=== PATIENT | female | born 1970 | race Caucasian/White ===

== ENCOUNTER 2016-05-15 14:22 | Emergency (ER) | payer OTHER ==
[2016-05-15 14:54] VITALS: BP 127/75
--- NOTE | 2016-05-15 15:04 | UC ---
Respiratory Complaint HPI - HPI Summary HPI Summary: patient has had sinus issues, cough and SOB for 3 days, she is a smoker. no current fever. - History of Current Complaint Chief Complaint: UCGeneralIllness Stated Complaint: UPPER RESPIRATORY Time Seen by Provider: 05/15/16 14:52 Hx Obtained From: Patient Hx Last Menstrual Period: had ablation ?: No Onset/Duration: Sudden Onset, Lasting Days Timing: Constant Severity Initially: Mild Severity Currently: Moderate Pain Intensity: 6 Pain Scale Used: 0-10 Numeric Character: Cough: Productive Aggravating Factors: Deep Breaths, Recumbent Position Associated Signs And Symptoms: Positive: Dyspnea, Chills, URI, Nasal Congestion , Sinus Discomfort - Risk Factors Pulmonary Embolism Risk Factors: Negative Cardiac Risk Factors: Negative Pseudomonas Risk Factors: Negative Tuberculosis Risk Factors: Negative - Allergies/Home Medications Allergies/Adverse Reactions: Allergies Allergy/AdvReac Type Severity Reaction Status Date / Time Codeine Allergy Intermediate "I Pass Verified 05/15/16 14:54 Out" Erythromycin AdvReac Severe Projectile Verified 05/15/16 14:54 Vomiting PMH/Surg Hx/FS Hx/Imm Hx Previously Healthy: Yes Endocrine History Of: Reports: Thyroid Disease - Hypothyroidism - Surgical History Surgical History: Yes Surgery Procedure, Year, and Place: Thyroidectomy, 1998, [facility]. Tubal Ligation, 2000, [facility]. Uterine Ablation, 2007, [facility]. gallbladder - Family History Known Family History: Positive: None - negative for HTn or CAD - Social History Alcohol Use: Occasionally Substance Use Type: None Smoking Status (MU): Heavy Every Day Tobacco Smoker Type: Cigarettes Amount Used/How Often: 1/2 ppd - Immunization History Most Recent Influenza Vaccination: none Review of Systems Constitutional: Chills Skin: Negative Eyes: Negative ENT: Sore Throat, Ear Ache, Nasal Discharge Respiratory: Shortness Of Breath, Cough Cardiovascular: Negative Gastrointestinal: Negative Genitourinary: Negative Motor: Negative Neurovascular: Negative Musculoskeletal: Negative Neurological: Negative Psychological: Negative All Other Systems Reviewed And Are Negative: Yes Physical Exam Triage Information Reviewed: Yes Appearance: Well-Nourished, Ill-Appearing, Pain Distress Vital Signs: Initial Vital Signs Temp 97.2 F 05/15/16 14:48 Pulse 63 05/15/16 14:48 Resp 17 05/15/16 14:48 BP 127/75 05/15/16 14:48 Pulse Ox 100 05/15/16 14:48 Vital Signs Reviewed: Yes Eye Exam: Normal Eyes: Positive: Conjunctiva Clear ENT: Positive: Pharyngeal erythema, Nasal congestion, Nasal drainage, TM bulging , TM red, Tonsillar swelling, Tonsillar exudate, Muffled/hoarse voice Dental Exam: Normal Neck exam: Normal Neck: Positive: Supple, Nontender, No Lymphadenopathy Respiratory Exam: Normal Respiratory: Positive: Chest non-tender, No respiratory distress, No accessory muscle use, Decreased breath sounds Cardiovascular Exam: Normal Cardiovascular: Positive: RRR, No Murmur, Pulses Normal Abdominal Exam: Normal Abdomen Description: Positive: Nontender, No Organomegaly, Soft Bowel Sounds: Positive: Present Musculoskeletal Exam: Normal Musculoskeletal: Positive: Strength Intact, ROM Intact, No Edema Neurological Exam: Normal Neurological: Positive: Alert, Muscle Tone Normal Psychological Exam: Normal Skin Exam: Normal UC Diagnostic Evaluation - Laboratory O2 Sat by Pulse Oximetry: 100 Respiratory Course/Dx - Course Course Of Treatment: hx obtained, exam performed, chest xray neg, treated for sinusitis, patient is a tobacco user, educated about tobacco cessation. medications prescribed. - Differential Dx/Diagnosis Differential Diagnosis/HQI/PQRI: Asthma, Bronchitis, Influenza, Laryngitis, Sinusitis Provider Diagnoses: sinusitis. headache. cough Discharge - Discharge Plan Condition: Stable Disposition: HOME Patient Education Materials: Sinusitis (ED) Additional Instructions: take the medication as prescribed, increase your fluid intake and get plenty of rest. Smoking exacerbates sinus and respiratory issues, I recommend follow up with your primary provider for tobacco cessation.
--- NOTE | 2016-05-15 15:38 | RAD ---
INDICATION: Cough and decreased breath sounds COMPARISON: Chest x-ray dated June 02, 2015 TECHNIQUE: PA and lateral views of the chest were obtained. FINDINGS: Stable postoperative findings include surgical clips overlying the neck. The heart and mediastinum are normal in size and contour. The lungs are grossly clear. There is no evidence of large pleural effusion. Visualized bones are normal for the patient's age. There is no radiographic evidence of free air beneath the diaphragm IMPRESSION: No radiographic evidence of acute cardiopulmonary disease.
== END 2016-05-15 15:55 | disposition home or self-care (01) ==
LOC: UCCORT 14:22
DX: J32.9 Chronic sinusitis, unspecified (principal); F17.210 Nicotine dependence, cigarettes, uncomplicated; Z88.1 Allergy status to other antibiotic agents; Z88.5 Allergy status to narcotic agent
CPT/HCPCS: 71020; 99212; G0463

== ENCOUNTER 2016-09-29 09:40 | Emergency (ER) | payer OTHER ==
[2016-09-29 09:57] VITALS: BP 109/59
--- NOTE | 2016-09-29 11:18 | UC ---
Respiratory Complaint HPI - HPI Summary HPI Summary: 46 female presents with complaints of productive cough, head congestion, headache and subjective fever that began 1 week ago. Patient states she tried taking ibuprofen, dayquill/nyquil with little relief. Last dose ibuprofen was at 8am today. Patient has been coughing up green mucus like sputum denies blood. States sometimes the cough is so bad she causes her self to vomit. It has kept her up at night as it worsens when laying down. States she had a fever of 102F 3 days ago. Denies abdominal pain, SOB, chest pain and difficulty breathing. States she just quit smoking 1 month ago. Also complains of begin so congested, it throws her equilibrium off and sometimes she feels dizzy, not currently. Denies PMHx. - History of Current Complaint Chief Complaint: UCRespiratory Stated Complaint: COUGH,DIZZINESS Time Seen by Provider: 09/29/16 10:13 Hx Obtained From: Patient Hx Last Menstrual Period: s/p Uterine Ablation ?: No Onset/Duration: Sudden Onset, Lasting Weeks - 1 Severity Initially: Mild Severity Currently: Moderate Character: Cough: Productive - [id number] sputum Aggravating Factors: Deep Breaths, Recumbent Position Alleviating Factors: Upright Position, Nothing Associated Signs And Symptoms: Positive: Fever, Chills, URI, Nasal Congestion. Negative: Dyspnea, Pleuritic Chest Pain, Hemoptysis, Dizziness, Calf Pain, Calf Swelling, Edema - Allergies/Home Medications Allergies/Adverse Reactions: Allergies Allergy/AdvReac Type Severity Reaction Status Date / Time Codeine Allergy Intermediate "I Pass Verified 09/29/16 09:52 Out" Erythromycin AdvReac Severe Projectile Verified 09/29/16 09:52 Vomiting Home Medications: Home Medications Ibuprofen TAB* [Advil TAB*] 400 mg PO Q6H PRN 09/29/16 [History Confirmed ] PMH/Surg Hx/FS Hx/Imm Hx Endocrine History Of: Reports: Thyroid Disease - Hypothyroidism Respiratory History Of: Denies: COPD, Asthma - Surgical History Surgical History: Yes Surgery Procedure, Year, and Place: Thyroidectomy, 1998, [facility]. Tubal Ligation, 2000, [facility]. Uterine Ablation, 2007, [facility]. gallbladder - Family History Known Family History: Positive: None - Social History Alcohol Use: Occasionally Substance Use Type: None Smoking Status (MU): Former Smoker Type: Cigarettes Amount Used/How Often: 1 1/2 PPD Length of Time of Smoking/Using Tobacco: 31 Years Have You Smoked in the Last Year: Yes When Did the Patient Quit Smoking/Using Tobacco: 08/31/16 - Immunization History Most Recent Influenza Vaccination: Not the Season Review of Systems Constitutional: Fever, Chills Skin: Negative Eyes: Negative ENT: Sore Throat, Ear Ache, Nasal Discharge Respiratory: Cough Cardiovascular: Negative Gastrointestinal: Vomiting Motor: Negative Musculoskeletal: Negative Neurological: Headache All Other Systems Reviewed And Are Negative: Yes Physical Exam Triage Information Reviewed: Yes Appearance: No Pain Distress, Well-Nourished, Ill-Appearing Vital Signs: Initial Vital Signs Temp 98.4 F 09/29/16 09:50 Pulse 78 09/29/16 09:50 Resp 16 09/29/16 09:50 BP 109/59 09/29/16 09:50 Pulse Ox 98 09/29/16 09:50 Vital Signs Reviewed: Yes Eyes: Positive: Conjunctiva Clear ENT: Positive: Normal ENT inspection, Hearing grossly normal, Pharyngeal erythema - post nasal drip noted, Nasal congestion - erythema b/l, TMs normal. Negative: Nasal drainage, Tonsillar swelling, Tonsillar exudate, Trismus, Muffled/hoarse voice Dental: Positive: Percussion Tenderness @ - "pressure" maxillary b/l. Negative : Cervical Lymphadenopathy Neck: Positive: Supple, Nontender, No Lymphadenopathy Respiratory: Positive: Chest non-tender, Lungs clear, Normal breath sounds, No respiratory distress, No accessory muscle use. Negative: Respiratory distress, Decreased breath sounds, Crackles, Rhonchi, Stridor, Wheezing Cardiovascular: Positive: RRR, No Murmur, Pulses Normal, Brisk Capillary Refill Abdomen Description: Positive: Nontender, Soft Bowel Sounds: Positive: Present Musculoskeletal: Positive: Strength Intact, ROM Intact, No Edema Neurological Exam: Normal Neurological: Positive: Alert Psychological: Positive: Normal Response To Family Skin Exam: Normal UC Diagnostic Evaluation - Laboratory O2 Sat by Pulse Oximetry: 98 Respiratory Course/Dx - Course Course Of Treatment: will be treated for sinusitis/URI due to length of symptoms and symptomatic treatment tried. flonase, z-pack due to patient stating it works best for her with past sinusitis, ibuprofen and fluids/rest. recommended cough suppressant at night time and salt water garles, saline rinses. Follow up PCP. Aware of worsening signs and symptoms. - Differential Dx/Diagnosis Differential Diagnosis/HQI/PQRI: Bronchitis, Influenza, Lower Resp Infection, Sinusitis, Other Provider Diagnoses: Acute Sinusitis Discharge - Discharge Plan Condition: Stable Disposition: HOME Prescriptions: Azithromycin TAB* [Zithromax TAB (Z-MICHELET) 250 mg #6 tabs] 2 tab PO .TODAY, THEN 1 DAILY #1 michelet Fluticasone NASAL SPRAY 50MCG* [Flonase NASAL SPRAY 50MCG*] 2 spray BOTH NARES DAILY #1 btl Patient Education Materials: Sinusitis (ED) Referrals: Mary Jo Keita MD [Primary Care Provider] - Additional Instructions: Take prescribed medication as directed. Use flonase nasal spray before bedtime to help with nasal/sinus congestion, while symptoms persist. Drink plenty of fluids and get plenty of rest. Continue ibuprofen for discomfort and fevers. Recommend gargling with salt water and saline nasal rinses, if able to tolerate. Sleep with extra pillow at night and take hot showers. If symptoms worsen or do not improve in the next 2 weeks, seek medical attention. Follow up with primary care provider.
== END 2016-09-29 11:26 | disposition home or self-care (01) ==
LOC: UCCORT 09:40
DX: J01.90 Acute sinusitis, unspecified (principal); Z87.891 Personal history of nicotine dependence
CPT/HCPCS: 99212; G0463

== ENCOUNTER 2017-05-11 07:40 | Emergency (ER) | payer OTHER ==
[2017-05-11 07:55] VITALS: BP 119/66
--- NOTE | 2017-05-11 08:06 | UC ---
Respiratory Complaint HPI - HPI Summary HPI Summary: cough x 3 days chest congestion and tightness, no fever, + chills no sob - History of Current Complaint Chief Complaint: UCRespiratory Stated Complaint: RESPRITORY Time Seen by Provider: 05/11/17 07:46 Hx Obtained From: Patient Hx Last Menstrual Period: n/a Onset/Duration: Gradual Onset, Lasting Days - 3, Still Present Timing: Constant Severity Initially: Moderate Severity Currently: Moderate Character: Cough: Nonproductive Aggravating Factors: Exertion, Deep Breaths Alleviating Factors: Nothing Associated Signs And Symptoms: Positive: Wheezing, URI, Nasal Congestion - Allergies/Home Medications Allergies/Adverse Reactions: Allergies Allergy/AdvReac Type Severity Reaction Status Date / Time Codeine Allergy Intermediate "I Pass Verified 09/29/16 09:52 Out" Erythromycin AdvReac Severe Projectile Verified 09/29/16 09:52 Vomiting Home Medications: Home Medications Levothyroxine TAB* [Synthroid TAB*] 112 mcg PO DAILY 05/11/17 [History Confirmed 05/11/17] PMH/Surg Hx/FS Hx/Imm Hx Endocrine History: Thyroid Disease, Hypothyroidism - Surgical History Surgical History: Yes Surgery Procedure, Year, and Place: Thyroidectomy, 1998, [facility]. Tubal Ligation, 2000, [facility]. Uterine Ablation, 2007, [facility]. gallbladder - Family History Known Family History: Positive: None Negative: Diabetes - Social History Alcohol Use: Occasionally Substance Use Type: None Smoking Status (MU): Former Smoker Type: Cigarettes Amount Used/How Often: 1 1/2 PPD Length of Time of Smoking/Using Tobacco: 31 Years Have You Smoked in the Last Year: Yes When Did the Patient Quit Smoking/Using Tobacco: 08/31/16 - Immunization History Most Recent Influenza Vaccination: Not the 2015/2016 Season Review of Systems Constitutional: Chills Skin: Negative Eyes: Negative ENT: Nasal Discharge Respiratory: Cough Cardiovascular: Negative Gastrointestinal: Negative Is Patient Immunocompromised?: No All Other Systems Reviewed And Are Negative: Yes Physical Exam Triage Information Reviewed: Yes Appearance: Well-Appearing, No Pain Distress, Well-Nourished Vital Signs: Initial Vital Signs Temp 99.3 F 05/11/17 07:48 Pulse 84 05/11/17 07:48 Resp 18 05/11/17 07:48 BP 119/66 05/11/17 07:48 Pulse Ox 97 05/11/17 07:48 Vital Signs Reviewed: Yes Eyes: Positive: Conjunctiva Clear ENT: Positive: Normal ENT inspection, Hearing grossly normal, Pharynx normal Neck: Positive: Supple, Nontender, No Lymphadenopathy Respiratory: Positive: Chest non-tender, Lungs clear, Normal breath sounds Cardiovascular Exam: Normal Cardiovascular: Positive: RRR, No Murmur, Pulses Normal Skin Exam: Normal UC Diagnostic Evaluation - Laboratory O2 Sat by Pulse Oximetry: 97 Respiratory Course/Dx - Differential Dx/Diagnosis Provider Diagnoses: bronchitis Discharge - Discharge Plan Condition: Stable Disposition: HOME Prescriptions: Albuterol HFA INHALER* [Ventolin HFA Inhaler*] 2 puff INH Q6H PRN #1 mdi PRN Reason: Wheezing Benzonatate [TESSALON 200 MG CAP] 200 mg PO Q8H #21 cap Patient Education Materials: Acute Bronchitis (ED) Referrals: Mary Jo Keita MD [Primary Care Provider] - If Needed
== END 2017-05-11 08:12 | disposition home or self-care (01) ==
LOC: UCCORT 07:40
DX: J40 Bronchitis, not specified as acute or chronic (principal); E03.9 Hypothyroidism, unspecified; Z90.49 Acquired absence of other specified parts of digestive tract; Z88.1 Allergy status to other antibiotic agents; Z88.5 Allergy status to narcotic agent; Z87.891 Personal history of nicotine dependence
CPT/HCPCS: 99212; G0463